=== PATIENT | male | born 1975 | race Caucasian/White ===

== ENCOUNTER 2016-09-26 16:47 | Emergency (ER) | payer OTHER ==
[2016-09-26 18:33] VITALS: BP 115/72
--- NOTE | 2016-09-26 19:02 | UC ---
Ear Complaint HPI - HPI Summary HPI Summary: This is an otherwise healthy 40 yo male who presents with c/os L ear pain. He reports that he has been having sxs for the last month but worse in the last couple of days. He reports no hearing loss or tinnitus. No recent illness. No fever or throat pain. He does report a history of cerumen impaction ~6 months ago. - History of Current Complaint Chief Complaint: UCEar Stated Complaint: EAR PAIN - Allergies/Home Medications Allergies/Adverse Reactions: Allergies Allergy/AdvReac Type Severity Reaction Status Date / Time No Known Allergies Allergy Verified 09/26/16 18:28 Home Medications: Home Medications NK [No Home Medications Reported] 09/26/16 [History Confirmed 09/26/16] PMH/Surg Hx/FS Hx/Imm Hx Previously Healthy: Yes - Surgical History Surgical History: None - Family History Family History: No significant family history - Social History Alcohol Use: Occasionally Substance Use Type: None Smoking Status (MU): Never Smoked Tobacco Review of Systems Constitutional: Negative Skin: Negative Eyes: Negative ENT: Ear Ache Respiratory: Negative Cardiovascular: Negative Gastrointestinal: Negative Genitourinary: Negative Motor: Negative Neurovascular: Negative Musculoskeletal: Negative Neurological: Negative Psychological: Negative All Other Systems Reviewed And Are Negative: Yes Physical Exam Triage Information Reviewed: Yes Appearance: Well-Appearing Vital Signs: Initial Vital Signs Temp 99.1 F 09/26/16 18:29 Pulse 61 09/26/16 18:29 Resp 16 09/26/16 18:29 BP 115/72 09/26/16 18:29 Pulse Ox 98 09/26/16 18:29 Vital Signs Reviewed: Yes ENT: Positive: Hearing grossly normal, Pharynx normal, Other: - L cerumen impaction, mod cerumen in R ear. Negative: Nasal drainage Re-Evaluation - Re-Evaluation First Eval Re-Evaluation Time: 19:20 Change: Improved Comment: EAC clear after irrigation. TM is benign, no pathology Ear Complaint Course/Dx - Course Course Of Treatment: Evidence of cerumen impaction on exam. Improved with irrigation. TM is intact and appears benign - Differential Dx/Diagnosis Provider Diagnoses: 1. L cerumen impaction Discharge - Discharge Plan Condition: Stable Disposition: HOME Patient Education Materials: Cerumen Impaction (ED) Additional Instructions: Activity: No restrictions Instructions: 1. Use wax softening drops and irrigate ears at home if you develop similar symptoms in the future 2. If you are unsuccessful with home medications, please return for re- evaluation
== END 2016-09-26 19:40 | disposition home or self-care (01) ==
LOC: UCEAST 16:47
DX: H61.22 Impacted cerumen, left ear (principal)
CPT/HCPCS: 99203; G0463

== ENCOUNTER 2016-11-05 16:48 | Emergency (ER) | payer OTHER ==
[2016-11-05 17:28] VITALS: BP 95/69
[2016-11-05] MEDS ORDERED: Ondansetron ODT TAB* 4 MG PO ONE (18:04)
--- NOTE | 2016-11-05 21:32 | UC ---
mounika Kim Timothy, scribed for Apoorva Lozano MD on 11/05/16 at 1805 . HPI Febrile Illness - HPI Summary HPI Summary: Kadeem Romero is a 41 yo male presenting to [facility] with 4/10 burning epigastric pain for the past 24 hours. His and daughter are in the room with him, and state that they do not have any GI Sx. He denies vomiting, but did have a fever of 100.3 today with nausea and dizziness, which he took advil for at 1500. He also c/o VILLAVICENCIO, and states his stool is slightly softer than normal. He denies any pertinent MHx - History of Current Complaint Chief Complaint: UCAbdominalPain Time Seen by Provider: 11/05/16 18:00 Hx Obtained From: Patient Onset/Duration: Started Hours Ago, Still Present Timing: Constant Temperature: 100.3 F Initial Severity: Moderate Current Severity: Moderate Pain Intensity: 4 Pain Scale Used: 0-10 Numeric Aggravating Factors: Nothing Alleviating Factors: Nothing Associated Signs and Symptoms: Diarrhea, Dizziness, Headache, Nausea - Risk Factors Pseudomonas Risk Factors: Negative Serious Bacterial Infection Risk Factors: Negative - Allergy/Home Medications Allergies/Adverse Reactions: Allergies Allergy/AdvReac Type Severity Reaction Status Date / Time No Known Allergies Allergy Verified 11/05/16 17:29 PMH/Surg Hx/FS Hx/Imm Hx Previously Healthy: Yes Infectious Disease History: No Infectious Disease History: Denies: Traveled Outside the [place] in Last 30 Days - Family History Known Family History: Positive: Cardiac Disease, Other - cancer Negative: Hypertension, Diabetes - Social History Lives: With Family Alcohol Use: Occasionally Substance Use Type: Reports: None Smoking Status (MU): Never Smoked Tobacco Review of Systems Constitutional: Fever Skin: Negative Eyes: Negative ENT: Negative Respiratory: Negative Cardiovascular: Negative Gastrointestinal: Abdominal Pain, Diarrhea - loose stool, Other - nausea, loss of appetite Genitourinary: Negative Motor: Negative Neurovascular: Negative Musculoskeletal: Negative Neurological: Headache, Other - dizziness Psychological: Negative All Other Systems Reviewed And Are Negative: Yes Physical Exam Triage Information Reviewed: Yes Appearance: No Pain Distress, Well-Nourished, Ill-Appearing Vital Signs: Initial Vital Signs Temp 99.4 F 11/05/16 17:23 Pulse 86 11/05/16 17:23 Resp 16 02/15/17 17:23 BP 95/69 11/05/16 17:23 Pulse Ox 98 11/05/16 17:23 Vital Signs Reviewed: Yes Eyes: Positive: Conjunctiva Clear. Negative: Discharge ENT: Positive: Hearing grossly normal. Negative: Muffled/hoarse voice Neck: Positive: Supple, Nontender, No Lymphadenopathy Respiratory: Positive: Lungs clear, Normal breath sounds, No respiratory distress Cardiovascular: Positive: RRR, No Murmur, Pulses Normal, Brisk Capillary Refill Abdomen Description: Positive: No Organomegaly, Soft. Negative: Nontender - mild epigastric tenderness, CVA Tenderness (R), CVA Tenderness (L), Distended, Guarding, Hernia @, Hepatomegaly, McBurney's Point Tenderness, Peritoneal Signs , Pulsatile Mass, Splenomegaly Bowel Sounds: Positive: Present Musculoskeletal: Positive: Strength Intact, ROM Intact Neurological: Positive: Alert, Muscle Tone Normal Psychological Exam: Normal Skin Exam: Normal Re-Evaluation - Re-Evaluation First Eval Re-Evaluation Time: 19:15 Change: Unchanged Comment: Pt is being informed of results of rapid flu tests and urinalysis, as well as current diagnosis and disposition. He is agreeable to the current course of treatment. Course/Dx - Course Assessment/Plan: Kadeem Romero is a 41 yo male presenting to [facility] with fever , epigastric pain, nausea, dizziness, diarrhea, and VILLAVICENCIO. He denies vomiting. After clinical examination, review of UA results, and negative group A and B rapid flu test, he will be discharged home with gastroenteritis and viral syndrome, and appropriate instructions. UA Results. Color: dark jaiden. Character: clear. Odor: none. Bilirubin: 2mg/dL. Urobilinogen: normal. Ketones: negative. Ascorbic Acid: 40mg/dL. Glucose: negative. Protein: negative. Blood: negative. pH: 5. Nitrite: negative. Leukocytes: 25 WBC's/ microliter. Specific [place]: 1.035 - Febrile Illness Differential Diagnoses: GI Disease, Other: - gastroenteritis, influenza - Diagnoses Clinic Provider Diagnoses: gastroenteritis, viral syndrome Discharge - Discharge Plan Condition: Stable Disposition: HOME Prescriptions: Ondansetron ODT TAB* [Zofran Odt TAB*] 4 mg PO Q6H PRN #12 tab.odt PRN Reason: Nausea Patient Education Materials: Gastroenteritis (ED), Viral Syndrome (ED) Referrals: Cassy Padgett MD [Primary Care Provider] - 2 Days Additional Instructions: Please follow up with your primary care physician regarding your visit to urgent care today. Return to urgent care or the emergency department with any new or recurring symptoms. The documentation as recorded by the mounika carrera Timothy accurately reflects the service I personally performed and the decisions made by me, Apoorva Lozano MD.
== END 2016-11-05 19:29 | disposition home or self-care (01) ==
LOC: UCEAST 16:48
DX: K52.9 Noninfective gastroenteritis and colitis, unspecified (principal); B34.9 Viral infection, unspecified
CPT/HCPCS: 81002; 87086; 87502; 99212; A9270-GY; G0463